=== PATIENT | male | born 1960 | race Two or more races ===

== ENCOUNTER 2018-12-31 03:12 | Inpatient (IN) | payer OTHER ==
[~2018-12-31] VITALS: Ht 172.7 cm; Wt 87.4 kg
[2018-12-31] MEDS ORDERED: FAMOTIDINE 20 MG/2 ML ONE (03:59)
[2018-12-31] MEDS ORDERED: ONDANSETRON 2MG/ML, 2ML ONE ×3 (03:59→07:29)
[2018-12-31] MEDS ORDERED: MORPHINE SULFATE 4 MG/ML, 1ML ONE ×2 (03:59→04:11)
[2018-12-31] MEDS ORDERED: PROMETHAZINE 25 MG/ML, 1ML ONE (03:59)
[2018-12-31] MEDS ORDERED: SODIUM CHLORIDE FLUSH 10ML SYR IVF ONE (04:00)
[2018-12-31] MEDS ORDERED: MORPHINE SULFATE 4 MG/ML, 1ML IVPush PRN (04:00)
[2018-12-31] MEDS ORDERED: PROMETHAZINE 25 MG/ML, 1ML IM ONE (04:00)
[2018-12-31] MEDS ORDERED: FAMOTIDINE 20 MG/2 ML IVP ONE (04:00)
[2018-12-31] MEDS ORDERED: ONDANSETRON 2MG/ML, 2ML IVPush ONE (04:00)
--- NOTE | 2018-12-31 04:12 | NUR ---
PT REPORT TO RIGOBERTO BRAY.
[2018-12-31 04:17] LABS: BASOPHILS # (AUTO) 0.04 x10^3/uL (0-0.1); BASOPHILS % (AUTO) 0 % (0-1); EOSINOPHILS # (AUTO) 0.02 x10^3/uL (0-0.4); EOSINOPHILS % (AUTO) 0 % (1-7); LYMPHOCYTES # (AUTO) 1.75 x10^3/uL (1-3.4); LYMPHOCYTES % (AUTO) 11 % (22-44); MD NO; MEAN CORPUSCULAR HEMOGLOBIN 31.4 pg (27.5-34.5); MEAN CORPUSCULAR HGB CONC 34.4 g/dL (33.2-36.2); MEAN CORPUSCULAR VOLUME 91.2 fL (81-97); MEAN PLATELET VOLUME 7.9 fL (7.4-10.4); MONOCYTES # (AUTO) 1.29 x10^3/uL (0.2-0.8); MONOCYTES % (AUTO) 8 % (2-9); NEUTROPHILS # (AUTO) 12.72 x10^3/uL (1.8-6.8); NEUTROPHILS % (AUTO) 80 % (42-75); PLATELET COUNT 211 x10^3/uL (130-400); RED BLOOD COUNT 5.58 x10^6/uL (4.38-5.82); RED CELL DISTRIBUTION WIDTH 13.8 % (9.4-14.8)
--- NOTE | 2018-12-31 04:28 | NUR ---
PT WITH IV STARTED AND BLOOD TO LAB PT WITH X-RAY AND US TO BEDSIDE AND WILL BE RECHECKED AT [id number]
[2018-12-31 04:30] LABS: ALBUMIN 4.5 g/dL (3.4-5.0); ANION GAP 8 mmol/L (5-15); CALCIUM 9.8 mg/dL (8.5-10.1); CHLORIDE 104 mmol/L (98-107)
[2018-12-31 04:37] LABS: ALANINE AMINOTRANSFERASE 41 U/L (12-78); ALKALINE PHOSPHATASE 79 U/L (45-117); BILIRUBIN,TOTAL 1.5 mg/dL (0.2-1.0); CREATININE 1.08 mg/dL (0.7-1.3); TOTAL PROTEIN 7.6 g/dL (6.4-8.2); TROPONIN I < 0.015 ng/mL (0.000-0.045)
[2018-12-31] MEDS ORDERED: CEFOTETAN PMX 1GM/50ML 50 ML ONE (05:16)
--- NOTE | 2018-12-31 05:16 | NUR ---
REPORT CALLED TO OR PT READY TO GO.
[2018-12-31] MEDS ORDERED: BUPIVACAINE/PF-EPI 0.5% 1:200K ONE (05:20)
[2018-12-31] MEDS ORDERED: CEFOTETAN PMX 1GM/50ML 50 ML IV ONE (05:30)
[2018-12-31] MEDS ORDERED: BUPIVACAINE/PF-EPI 0.5% 1:200K IM ONE (05:43)
[2018-12-31] MEDS ORDERED: MIDAZOLAM 1 MG/ML, 2ML ONE (05:55)
[2018-12-31] MEDS ORDERED: FENTANYL PF 250 MCG/5ML ONE (05:55)
[2018-12-31] MEDS ORDERED: CEFAZOLIN 1,000 MG ONE (05:58)
[2018-12-31] MEDS ORDERED: ROCURONIUM 10 MG/ML,10ML ONE (05:58)
[2018-12-31] MEDS ORDERED: DEXAMETHASONE 4 MG/ML, 1ML ONE (05:58)
[2018-12-31] MEDS ORDERED: PROPOFOL 10 MG/ML, 20ML ONE (05:58)
[2018-12-31] MEDS ORDERED: SUCCINYLCHOLINE 20 MG/ML, 10ML ONE (05:58)
[2018-12-31] MEDS ORDERED: HYDROmorphone 1 MG/ML, 1ML INJ IV PRN (06:30)
[2018-12-31] MEDS ORDERED: METOCLOPRAMIDE 5 MG/ML, 2ML IV PRN (06:30)
[2018-12-31] MEDS ORDERED: PROMETHAZINE 25 MG/ML, 1ML IV PRN (06:30)
[2018-12-31] MEDS ORDERED: FENTANYL PF 100 MCG/2ML IV PRN (06:30)
[2018-12-31] MEDS ORDERED: MEPERIDINE/PF 25MG/0.5ML IVPush PRN (06:30)
[2018-12-31] MEDS ORDERED: KETOROLAC 30 MG/1 ML IV PRN (06:30)
[2018-12-31] MEDS ORDERED: ALBUTEROL SULFATE 2.5 MG/3 ML NPPB PRN (06:30)
[2018-12-31] MEDS ORDERED: ONDANSETRON 2MG/ML, 2ML IVPush PRN ×2 (06:30→08:30)
[2018-12-31] MEDS ORDERED: LABETALOL 5MG/ML, 20ML IV PRN (06:30)
[2018-12-31] MEDS ORDERED: OXYcodone 5 MG/5 ML ORAL.SOL UDC PO PRN (06:30)
[2018-12-31] MEDS ORDERED: OXYcodone 5 MG/5 ML ORAL.SOL UDC ONE (07:07)
[2018-12-31] MEDS ORDERED: MEPERIDINE/PF 25MG/ML,1ML ONE (07:13)
[2018-12-31] MEDS ORDERED: hydrALAzine 20 MG/ML, 1ML ONE (07:17)
[2018-12-31] MEDS: hydrALAzine 20 MG/ML, 1ML IV PRN ×2 (07:24→07:45)
[2018-12-31] MEDS ORDERED: KETOROLAC 30 MG/1 ML ONE (07:29)
[2018-12-31 08:15] VITALS: BP 119/80
[2018-12-31] MEDS ORDERED: morphine SULFATE 10 MG/ML, 1ML IVPush PRN (08:30)
[2018-12-31] MEDS: SODIUM CHLORIDE 0.9% 1,000 ML IV SCH ×2 (08:30→18:31)
[2018-12-31] MEDS: POTASSIUM CHLORIDE 20 MEQ in LACTATED RINGERS 1,000 ML IV SCH ×2 (10:13→22:39)
[2018-12-31] MEDS: PIPERACILLIN/TAZO/PMX 3.375GM 50 ML IV SCH ×2 (10:13→19:07)
[2018-12-31] MEDS: OXYcodone/APAP 5/325MG TABLET PO PRN ×3 (11:00→19:58)
[2018-12-31] MEDS ORDERED: hydrALAzine 20 MG/ML, 1ML IVPush PRN (11:45)
[2018-12-31] MEDS: morphine SULFATE 10 MG/ML, 1ML IV PRN (13:47)
[2018-12-31 14:39] VITALS: BP 138/87
[2018-12-31] MEDS: CEFOTETAN PMX 1GM/50ML 50 ML IVPB SCH (18:16)
[2018-12-31 18:39] LABS: MICROSCOPIC NOT IND
[2018-12-31 18:44] LABS: CULTURE INDICATED? NO
[2018-12-31 19:46] VITALS: BP 171/104
[2018-12-31] MEDS: HYDROmorphone 2 MG/ML, 1ML IVPush PRN ×3 (20:52→23:29)
[2018-12-31 23:39] VITALS: BP 138/77
[2019-01-01] MEDS: HYDROcodone/APAP 5/325 TABLET PO PRN ×6 (00:28→22:51)
[2019-01-01] MEDS: PIPERACILLIN/TAZO/PMX 3.375GM 50 ML IV SCH ×3 (01:50→17:13)
[2019-01-01] MEDS: HYDROmorphone 2 MG/ML, 1ML IVPush PRN ×8 (03:06→21:28)
[2019-01-01 05:46] LABS: MEAN CORPUSCULAR HEMOGLOBIN 31.7 pg (27.5-34.5); MEAN CORPUSCULAR HGB CONC 34.2 g/dL (33.2-36.2); MEAN CORPUSCULAR VOLUME 92.6 fL (81-97); MEAN PLATELET VOLUME 7.9 fL (7.4-10.4); PLATELET COUNT 175 x10^3/uL (130-400); RED BLOOD COUNT 5.09 x10^6/uL (4.38-5.82); RED CELL DISTRIBUTION WIDTH 13.8 % (9.4-14.8)
[2019-01-01 05:59] LABS: ALBUMIN 3.5 g/dL (3.4-5.0); ANION GAP 5 mmol/L (5-15); CALCIUM 8.4 mg/dL (8.5-10.1); CHLORIDE 105 mmol/L (98-107)
[2019-01-01] MEDS: CEFOTETAN PMX 1GM/50ML 50 ML IVPB SCH (05:59)
[2019-01-01] MEDS: ENOXAPARIN 40 MG/0.4 ML SQ SCH (05:59)
[2019-01-01 06:04] LABS: ALANINE AMINOTRANSFERASE 47 U/L (12-78); ALKALINE PHOSPHATASE 66 U/L (45-117); BILIRUBIN,TOTAL 1.7 mg/dL (0.2-1.0); CREATININE 1.01 mg/dL (0.7-1.3); TOTAL PROTEIN 6.9 g/dL (6.4-8.2)
[2019-01-01 06:15] LABS: BASOPHILS # (AUTO) 0.01 x10^3/uL (0-0.1); BASOPHILS % (AUTO) 0 % (0-1); EOSINOPHILS # (AUTO) 0.02 x10^3/uL (0-0.4); EOSINOPHILS % (AUTO) 0 % (1-7); LYMPHOCYTES % (AUTO) 5 % (22-44); MD SCAN; MONOCYTES # (AUTO) 1.34 x10^3/uL (0.2-0.8); MONOCYTES % (AUTO) 8 % (2-9); NEUTROPHILS # (AUTO) 14.84 x10^3/uL (1.8-6.8); NEUTROPHILS % (AUTO) 87 % (42-75)
[2019-01-01] MEDS: SODIUM CHLORIDE 0.9% 1,000 ML IV SCH ×2 (06:46→07:42)
[2019-01-01 07:20] VITALS: BP 171/89
[2019-01-01] MEDS: POTASSIUM CHLORIDE 20 MEQ in LACTATED RINGERS 1,000 ML IV SCH ×2 (08:38→21:00)
[2019-01-01 13:40] VITALS: BP 137/90
[2019-01-01 18:30] VITALS: BP 155/95
[2019-01-02 01:35] VITALS: BP 152/93
[2019-01-02] MEDS: HYDROmorphone 2 MG/ML, 1ML IVPush PRN ×8 (02:22→21:17)
[2019-01-02] MEDS: ONDANSETRON 2MG/ML, 2ML IV PRN ×4 (02:22→18:24)
[2019-01-02] MEDS: PIPERACILLIN/TAZO/PMX 3.375GM 50 ML IV SCH ×3 (02:22→20:04)
[2019-01-02] MEDS: SODIUM CHLORIDE 0.9% 1,000 ML IV SCH ×3 (04:00→17:42)
[2019-01-02 05:11] LABS: MEAN CORPUSCULAR HEMOGLOBIN 31.5 pg (27.5-34.5); MEAN CORPUSCULAR HGB CONC 33.7 g/dL (33.2-36.2); MEAN CORPUSCULAR VOLUME 93.6 fL (81-97); MEAN PLATELET VOLUME 7.8 fL (7.4-10.4); PLATELET COUNT 161 x10^3/uL (130-400); RED BLOOD COUNT 4.63 x10^6/uL (4.38-5.82); RED CELL DISTRIBUTION WIDTH 13.5 % (9.4-14.8)
[2019-01-02 05:18] LABS: ANION GAP 5 mmol/L (5-15); CHLORIDE 106 mmol/L (98-107)
[2019-01-02 05:28] LABS: CREATININE 0.76 mg/dL (0.7-1.3)
[2019-01-02 05:54] LABS: C-REACTIVE PROTEIN, QUANT > 19.00 mg/dL (0.02-0.49)
[2019-01-02] MEDS: ENOXAPARIN 40 MG/0.4 ML SQ SCH (06:06)
[2019-01-02] MEDS: POTASSIUM CHLORIDE 20 MEQ in LACTATED RINGERS 1,000 ML IV SCH ×2 (06:07→13:10)
[2019-01-02 06:34] LABS: BASOPHILS # (AUTO) 0.01 x10^3/uL (0-0.1); BASOPHILS % (AUTO) 0 % (0-1); EOSINOPHILS # (AUTO) 0.09 x10^3/uL (0-0.4); EOSINOPHILS % (AUTO) 1 % (1-7); LYMPHOCYTES % (AUTO) 4 % (22-44); MD SCAN; MONOCYTES # (AUTO) 1.36 x10^3/uL (0.2-0.8); MONOCYTES % (AUTO) 8 % (2-9); NEUTROPHILS # (AUTO) 16.11 x10^3/uL (1.8-6.8); NEUTROPHILS % (AUTO) 88 % (42-75)
[2019-01-02 07:20] VITALS: BP 152/105
[2019-01-02] MEDS: HYDROcodone/APAP 5/325 TABLET PO PRN ×4 (07:35→20:03)
[2019-01-02] MEDS ORDERED: OMNIPAQUE 350 MG/ML, 100ML BOTTLE ONE ×2 (08:29→17:09)
[2019-01-02 09:44] LABS: MICROSCOPIC AUTO
[2019-01-02 09:48] LABS: CULTURE INDICATED? NO
[2019-01-02] MEDS ORDERED: ONDANSETRON 2MG/ML, 2ML ONE (12:54)
[2019-01-02 15:46] VITALS: BP 192/124
[2019-01-02] MEDS: morphine SULFATE 10 MG/ML, 1ML IV PRN (16:33)
[2019-01-02] MEDS: ACETYLCYSTEINE 600 MG CAPSULE PO SCH (17:42)
[2019-01-02 17:55] LABS: TROPONIN I < 0.015 ng/mL (0.000-0.045)
[2019-01-02 19:50] VITALS: BP 161/110
[2019-01-02 23:43] LABS: TROPONIN I < 0.015 ng/mL (0.000-0.045)
[2019-01-03] VITALS (7 sets, daily range): BP systolic 124–171; BP diastolic 78–100
[2019-01-03] MEDS: ONDANSETRON 2MG/ML, 2ML IV PRN ×3 (00:15→22:52)
[2019-01-03] MEDS: HYDROcodone/APAP 5/325 TABLET PO PRN ×2 (00:15→20:05)
[2019-01-03] MEDS: hydrALAzine 20 MG/ML, 1ML IVPush PRN (00:15)
[2019-01-03] MEDS: OXYcodone/APAP 5/325MG TABLET PO PRN ×4 (04:32→16:15)
[2019-01-03] MEDS: PIPERACILLIN/TAZO/PMX 3.375GM 50 ML IV SCH ×3 (04:33→20:06)
[2019-01-03] MEDS: SODIUM CHLORIDE 0.9% 1,000 ML IV SCH ×2 (05:51→16:15)
[2019-01-03 06:25] LABS: MEAN CORPUSCULAR HEMOGLOBIN 31.4 pg (27.5-34.5); MEAN CORPUSCULAR HGB CONC 33.9 g/dL (33.2-36.2); MEAN CORPUSCULAR VOLUME 92.7 fL (81-97); MEAN PLATELET VOLUME 7.7 fL (7.4-10.4); PLATELET COUNT 171 x10^3/uL (130-400); RED BLOOD COUNT 4.43 x10^6/uL (4.38-5.82); RED CELL DISTRIBUTION WIDTH 13.7 % (9.4-14.8)
[2019-01-03 06:29] LABS: ANION GAP 9 mmol/L (5-15); CHLORIDE 104 mmol/L (98-107); CREATININE 0.66 mg/dL (0.7-1.3)
[2019-01-03 06:49] LABS: HCT (SEDRATE) 41.1 % (39.2-51.8)
[2019-01-03 07:12] LABS: BASOPHILS # (AUTO) 0.01 x10^3/uL (0-0.1); BASOPHILS % (AUTO) 0 % (0-1); EOSINOPHILS # (AUTO) 0.06 x10^3/uL (0-0.4); EOSINOPHILS % (AUTO) 1 % (1-7); LYMPHOCYTES % (AUTO) 4 % (22-44); MD SCAN; MONOCYTES # (AUTO) 0.95 x10^3/uL (0.2-0.8); MONOCYTES % (AUTO) 9 % (2-9); NEUTROPHILS # (AUTO) 9.66 x10^3/uL (1.8-6.8); NEUTROPHILS % (AUTO) 87 % (42-75)
[2019-01-03] MEDS ORDERED: HYDROmorphone 1 MG/ML, 1ML INJ IV ONE (07:30)
[2019-01-03] MEDS ORDERED: HYDROmorphone 2 MG/ML, 1ML ONE (07:34)
[2019-01-03] MEDS: ENOXAPARIN 40 MG/0.4 ML SQ SCH (08:27)
[2019-01-03] MEDS: ACETYLCYSTEINE 600 MG CAPSULE PO SCH ×2 (08:27→20:05)
[2019-01-03] MEDS: PANTOPRAZOLE 40 MG IV IVPush SCH (19:42)
[2019-01-03] MEDS: morphine SULFATE 10 MG/ML, 1ML IV PRN (23:37)
[2019-01-04 00:49] VITALS: BP 151/96
[2019-01-04] MEDS: SODIUM CHLORIDE 0.9% 1,000 ML IV SCH ×3 (01:02→20:19)
[2019-01-04] MEDS: HYDROcodone/APAP 5/325 TABLET PO PRN ×6 (01:02→22:25)
[2019-01-04] MEDS: PIPERACILLIN/TAZO/PMX 3.375GM 50 ML IV SCH ×3 (03:43→20:18)
[2019-01-04 05:31] LABS: MEAN CORPUSCULAR HEMOGLOBIN 31.2 pg (27.5-34.5); MEAN CORPUSCULAR HGB CONC 33.7 g/dL (33.2-36.2); MEAN CORPUSCULAR VOLUME 92.5 fL (81-97); MEAN PLATELET VOLUME 7.3 fL (7.4-10.4); PLATELET COUNT 205 x10^3/uL (130-400); RED CELL DISTRIBUTION WIDTH 13.8 % (9.4-14.8)
[2019-01-04 05:42] LABS: ANION GAP 8 mmol/L (5-15); CALCIUM 7.8 mg/dL (8.5-10.1); CHLORIDE 107 mmol/L (98-107); CREATININE 0.67 mg/dL (0.7-1.3)
[2019-01-04 05:45] LABS: HCT (SEDRATE) 39.8 % (39.2-51.8)
[2019-01-04 06:11] LABS: BASOPHILS # (AUTO) 0.01 x10^3/uL (0-0.1); BASOPHILS % (AUTO) 0 % (0-1); EOSINOPHILS # (AUTO) 0.18 x10^3/uL (0-0.4); EOSINOPHILS % (AUTO) 2 % (1-7); LYMPHOCYTES # (AUTO) 0.69 x10^3/uL (1-3.4); LYMPHOCYTES % (AUTO) 8 % (22-44); MD SCAN; MONOCYTES # (AUTO) 0.96 x10^3/uL (0.2-0.8); MONOCYTES % (AUTO) 11 % (2-9); NEUTROPHILS # (AUTO) 7.04 x10^3/uL (1.8-6.8); NEUTROPHILS % (AUTO) 79 % (42-75)
[2019-01-04 07:08] VITALS: BP 132/81
[2019-01-04] MEDS: PANTOPRAZOLE 40 MG IV IVPush SCH ×2 (07:27→20:19)
[2019-01-04] MEDS: ACETYLCYSTEINE 600 MG CAPSULE PO SCH (09:19)
[2019-01-04] MEDS: ENOXAPARIN 40 MG/0.4 ML SQ SCH (09:19)
[2019-01-04] MEDS: morphine SULFATE 10 MG/ML, 1ML IV PRN (12:25)
[2019-01-04 12:34] VITALS: BP 159/105
[2019-01-04] MEDS ORDERED: KETOROLAC 30 MG/1 ML IM PRN (13:00)
[2019-01-04] MEDS: KETOROLAC 30 MG/1 ML IVPush PRN (13:20)
[2019-01-04 14:30] VITALS: BP 157/96
[2019-01-04] MEDS ORDERED: MAALOX/HYOSCYAMINE/LIDOCAINE 45 ML BTL PO ONE (15:00)
[2019-01-04 15:29] LABS: ALANINE AMINOTRANSFERASE 24 U/L (12-78); ALBUMIN 2.4 g/dL (3.4-5.0); ANION GAP 8 mmol/L (5-15); CALCIUM 7.8 mg/dL (8.5-10.1); CHLORIDE 108 mmol/L (98-107); CREATININE 0.88 mg/dL (0.7-1.3)
[2019-01-04 15:31] LABS: ALKALINE PHOSPHATASE 66 U/L (45-117); BILIRUBIN,TOTAL 0.6 mg/dL (0.2-1.0); TOTAL PROTEIN 6.1 g/dL (6.4-8.2)
[2019-01-04 19:23] VITALS: BP 104/54
[2019-01-05 00:35] VITALS: BP 116/82
[2019-01-05] MEDS: morphine SULFATE 10 MG/ML, 1ML IV PRN ×7 (01:03→23:24)
[2019-01-05 03:36] VITALS: BP 152/103
[2019-01-05] MEDS: PIPERACILLIN/TAZO/PMX 3.375GM 50 ML IV SCH ×3 (03:52→20:29)
[2019-01-05 04:30] VITALS: BP 158/98
[2019-01-05 05:27] LABS: MEAN CORPUSCULAR HEMOGLOBIN 30.7 pg (27.5-34.5); MEAN CORPUSCULAR HGB CONC 33.7 g/dL (33.2-36.2); MEAN PLATELET VOLUME 7.1 fL (7.4-10.4); PLATELET COUNT 212 x10^3/uL (130-400); RED CELL DISTRIBUTION WIDTH 13.8 % (9.4-14.8)
[2019-01-05 05:41] LABS: ANION GAP 6 mmol/L (5-15); CALCIUM 7.7 mg/dL (8.5-10.1); CHLORIDE 109 mmol/L (98-107)
[2019-01-05 05:43] LABS: CREATININE 0.77 mg/dL (0.7-1.3)
[2019-01-05 06:03] LABS: BASOPHILS # (AUTO) 0.04 x10^3/uL (0-0.1); BASOPHILS % (AUTO) 1 % (0-1); EOSINOPHILS # (AUTO) 0.41 x10^3/uL (0-0.4); EOSINOPHILS % (AUTO) 5 % (1-7); LYMPHOCYTES # (AUTO) 0.79 x10^3/uL (1-3.4); LYMPHOCYTES % (AUTO) 10 % (22-44); MD SCAN; MONOCYTES % (AUTO) 12 % (2-9); NEUTROPHILS # (AUTO) 6.11 x10^3/uL (1.8-6.8); NEUTROPHILS % (AUTO) 73 % (42-75)
[2019-01-05] MEDS: SODIUM CHLORIDE 0.9% 1,000 ML IV SCH (06:42)
[2019-01-05 07:44] VITALS: BP 144/99
[2019-01-05] MEDS: PANTOPRAZOLE 40 MG IV IVPush SCH ×2 (08:49→20:29)
[2019-01-05] MEDS: ENOXAPARIN 40 MG/0.4 ML SQ SCH (09:03)
[2019-01-05 12:33] VITALS: BP 177/109
[2019-01-05] MEDS: ONDANSETRON 2MG/ML, 2ML IV PRN (12:47)
[2019-01-05] MEDS: hydrALAzine 20 MG/ML, 1ML IVPush PRN (12:48)
[2019-01-05] MEDS ORDERED: MIDAZOLAM 1 MG/ML, 2ML ONE (13:06)
[2019-01-05] MEDS ORDERED: FENTANYL PF 250 MCG/5ML ONE (13:07)
[2019-01-05] MEDS ORDERED: FENTANYL PF 100 MCG/2ML ONE ×2 (14:17→14:44)
[2019-01-05] MEDS ORDERED: PROPOFOL 10 MG/ML, 20ML ONE (14:22)
[2019-01-05] MEDS ORDERED: ONDANSETRON 2MG/ML, 2ML ONE (14:44)
[2019-01-05] MEDS: FENTANYL PF 100 MCG/2ML IV PRN ×2 (14:45→14:58)
[2019-01-05] MEDS ORDERED: ONDANSETRON 2MG/ML, 2ML IV PRN (15:00)
[2019-01-05] MEDS ORDERED: MORPHINE SULFATE 4 MG/ML, 1ML IVPush PRN (15:00)
[2019-01-05 20:10] VITALS: BP 133/97
[2019-01-05] MEDS: OXYcodone/APAP 5/325MG TABLET PO PRN (20:29)
[2019-01-05] MEDS: KETOROLAC 30 MG/1 ML IVPush PRN (20:30)
[2019-01-06] VITALS: BP 130/82
[2019-01-06] MEDS: HYDROcodone/APAP 5/325 TABLET PO PRN ×5 (01:14→21:02)
[2019-01-06 01:17] VITALS: BP 126/76
[2019-01-06] MEDS: morphine SULFATE 10 MG/ML, 1ML IV PRN ×3 (02:12→14:49)
[2019-01-06 04:16] VITALS: BP 127/82
[2019-01-06] MEDS: ONDANSETRON 2MG/ML, 2ML IV PRN ×3 (05:28→21:09)
[2019-01-06 05:33] LABS: HCT (SEDRATE) 39.2 % (39.2-51.8)
[2019-01-06] MEDS: KETOROLAC 30 MG/1 ML IVPush PRN ×2 (05:52→12:09)
[2019-01-06 07:26] VITALS: BP 149/88
[2019-01-06] MEDS: PANTOPRAZOLE 40 MG IV IVPush SCH (07:58)
[2019-01-06] MEDS: ENOXAPARIN 40 MG/0.4 ML SQ SCH (07:58)
[2019-01-06 13:32] VITALS: BP 137/84
[2019-01-06] MEDS: PANTOPROZOLE 40MG TABLET PO SCH (18:44)
[2019-01-06 20:29] VITALS: BP 149/93
[2019-01-07] MEDS: morphine SULFATE 10 MG/ML, 1ML IV PRN ×3 (00:44→06:50)
[2019-01-07] MEDS: HYDROcodone/APAP 5/325 TABLET PO PRN ×5 (01:37→21:03)
[2019-01-07 02:35] VITALS: BP 148/98
[2019-01-07 05:50] LABS: BASOPHILS # (AUTO) 0.05 x10^3/uL (0-0.1); BASOPHILS % (AUTO) 1 % (0-1); EOSINOPHILS # (AUTO) 0.45 x10^3/uL (0-0.4); EOSINOPHILS % (AUTO) 5 % (1-7); LYMPHOCYTES # (AUTO) 1.45 x10^3/uL (1-3.4); LYMPHOCYTES % (AUTO) 18 % (22-44); MD NO; MEAN CORPUSCULAR HEMOGLOBIN 30.7 pg (27.5-34.5); MEAN CORPUSCULAR HGB CONC 33.6 g/dL (33.2-36.2); MEAN CORPUSCULAR VOLUME 91.2 fL (81-97); MONOCYTES # (AUTO) 0.94 x10^3/uL (0.2-0.8); MONOCYTES % (AUTO) 11 % (2-9); NEUTROPHILS # (AUTO) 5.36 x10^3/uL (1.8-6.8); NEUTROPHILS % (AUTO) 65 % (42-75); PLATELET COUNT 248 x10^3/uL (130-400); RED BLOOD COUNT 4.35 x10^6/uL (4.38-5.82); RED CELL DISTRIBUTION WIDTH 13.4 % (9.4-14.8)
[2019-01-07 05:58] LABS: CHLORIDE 110 mmol/L (98-107)
[2019-01-07 06:06] LABS: ANION GAP 5 mmol/L (5-15); CALCIUM 8.1 mg/dL (8.5-10.1); CREATININE 0.72 mg/dL (0.7-1.3)
[2019-01-07] MEDS: PANTOPROZOLE 40MG TABLET PO SCH ×2 (06:40→17:03)
[2019-01-07] MEDS: ENOXAPARIN 40 MG/0.4 ML SQ SCH (08:20)
[2019-01-07 09:23] VITALS: BP 143/91
[2019-01-07] MEDS ORDERED: POTASSIUM CHLORIDE 20 MEQ TAB.ER.PRT PO ONE (10:30)
[2019-01-07 13:30] VITALS: BP 132/86
[2019-01-07 14:56] LABS: ANA SCREEN NEGATIVE (Negative)
[2019-01-07] MEDS: ONDANSETRON 2MG/ML, 2ML IV PRN (15:27)
[2019-01-07 20:17] VITALS: BP 148/97
[2019-01-07] MEDS: LISINOPRIL 10 MG TABLET PO SCH (23:18)
[2019-01-08] MEDS: ONDANSETRON 2MG/ML, 2ML IV PRN ×2 (01:26→15:12)
[2019-01-08] MEDS: HYDROcodone/APAP 5/325 TABLET PO PRN ×3 (01:27→12:28)
[2019-01-08 03:01] VITALS: BP 131/86
[2019-01-08 05:30] LABS: CHLORIDE 109 mmol/L (98-107)
[2019-01-08 05:43] LABS: ANION GAP 5 mmol/L (5-15); CALCIUM 8.2 mg/dL (8.5-10.1); CREATININE 0.76 mg/dL (0.7-1.3)
[2019-01-08 06:07] LABS: MEAN CORPUSCULAR HEMOGLOBIN 30.9 pg (27.5-34.5); MEAN CORPUSCULAR HGB CONC 33.7 g/dL (33.2-36.2); MEAN CORPUSCULAR VOLUME 91.7 fL (81-97); MEAN PLATELET VOLUME 7.6 fL (7.4-10.4); PLATELET COUNT 246 x10^3/uL (130-400); RED BLOOD COUNT 4.32 x10^6/uL (4.38-5.82); RED CELL DISTRIBUTION WIDTH 13.6 % (9.4-14.8)
[2019-01-08 06:08] LABS: BASOPHILS # (AUTO) 0.05 x10^3/uL (0-0.1); BASOPHILS % (AUTO) 1 % (0-1); EOSINOPHILS % (AUTO) 4 % (1-7); LYMPHOCYTES # (AUTO) 1.85 x10^3/uL (1-3.4); LYMPHOCYTES % (AUTO) 17 % (22-44); MD SCAN; MONOCYTES # (AUTO) 1.06 x10^3/uL (0.2-0.8); MONOCYTES % (AUTO) 10 % (2-9); NEUTROPHILS # (AUTO) 7.67 x10^3/uL (1.8-6.8); NEUTROPHILS % (AUTO) 70 % (42-75)
[2019-01-08 06:39] VITALS: BP 137/97
[2019-01-08] MEDS: PANTOPROZOLE 40MG TABLET PO SCH (06:44)
[2019-01-08] MEDS: LISINOPRIL 10 MG TABLET PO SCH (08:09)
[2019-01-08] MEDS: ENOXAPARIN 40 MG/0.4 ML SQ SCH (08:09)
[2019-01-08] MEDS ORDERED: CLON0.1T22 PO (14:33)
[2019-01-08] MEDS ORDERED: LISI-167 PO (14:33)
[2019-01-08] MEDS ORDERED: HYDR-3237 PO (14:33)
[2019-01-08] MEDS ORDERED: ONDA4TAB7 PO (14:33)
[2019-01-08] MEDS ORDERED: PANT40TA5 PO (14:33)
[2019-01-08] MEDS ORDERED: AMLO-150 PO (14:33)
[2019-01-08 15:00] VITALS: BP 140/89
== END 2019-01-08 16:42 | disposition home or self-care (01) | DRG 418 ==
LOC: ED 05:14 → EDIP 05:21 → 4NOR 07:56 → DCLOUNGE 01-08 16:28
PROVIDERS: ADMIT Family Medicine; ATTEND Family Medicine
PROC: 0FT44ZZ Resection of Gallbladder, Percutaneous Endoscopic Approach (ICD-10-PCS; principal; 2018-12-31 05:15)
PROC: 0DB68ZX Excision of Stomach, Via Natural or Artificial Opening Endoscopic, Diagnostic (ICD-10-PCS; 2019-01-05)
DX: K80.00 Calculus of gallbladder with acute cholecystitis without obstruction (principal); N13.2 Hydronephrosis with renal and ureteral calculous obstruction; J98.11 Atelectasis; K25.9 Gastric ulcer, unspecified as acute or chronic, without hemorrhage or perforation; K26.9 Duodenal ulcer, unspecified as acute or chronic, without hemorrhage or perforation; K57.30 Diverticulosis of large intestine without perforation or abscess without bleeding; E87.6 Hypokalemia; I10 Essential (primary) hypertension; I16.0 Hypertensive urgency; K76.0 Fatty (change of) liver, not elsewhere classified; Q89.9 Congenital malformation, unspecified; Z79.1 Long term (current) use of non-steroidal anti-inflammatories (NSAID)
CPT/HCPCS: 36415; 84145; 99285; J3490; 71045; 71275; 74176; 74177; 76700; 78226; 80048; 80053; 81001; 81003; 83690; 83735; 84484; 85025; 85651; 86038; 86140; 86141; 86256; 86677; 87040; 88304; 88305; 93005; 96372; 96374; 96375; G0378; J0690; J1100; J1170; J1650; J1885; J2175; J2250; J2405; J2543; J2550; J2704; J3010; J3480; Q9967; A9537; C9113; C9898; J0330; J0360; J2270; J7030; J7120